=== PATIENT | male | born 1965 | race Hispanic/Latino ===

== ENCOUNTER 2021-06-28 09:50 | Emergency (ER) | payer SELFPAY ==
--- NOTE | 2021-06-28 12:03 | ER ---
Nurse's Notes [facility] Name: Sudhakar Rodriguez Age: 56 yrs Sex: Male : 1965 Arrival Date: 06/28/2021 Time: 09:53 Bed DIS2 Private MD: Diagnosis: Anxiety disorder, unspecified Presentation: 06/28 09:54 Chief complaint: Patient states: pt states he has parasites in his body and got iw medicine from [place] for it but he's out, has had parasites for a year and half , pt stated that he was throwing them up and then they came out of his forehead and he thinks he has nests all over his body, found meth in the house but pt denied that it was his. Coronavirus screen: At this time, the client does not indicate any symptoms associated with coronavirus-19. Ebola Screen: Patient negative for fever greater than or equal to 101.5 degrees Fahrenheit, and additional compatible Ebola Virus Disease symptoms Patient denies exposure to infectious person. Patient denies travel to an Ebola-affected area in the 21 days before illness onset. No symptoms or risks identified at this time. Initial Sepsis Screen: Does the patient meet any 2 criteria? No. Patient's initial sepsis screen is negative. Does the patient have a suspected source of infection? No. Patient's initial sepsis screen is negative. Risk Assessment: Do you want to hurt yourself or someone else? Patient reports no desire to harm self or others. Onset of symptoms was June 28, 2021. 09:54 Method Of Arrival: EMS: [facility] iw 09:54 Acuity: YANET 4 iw Triage Assessment: 10:56 General: Appears in no apparent distress. comfortable, Behavior is cooperative, vg1 anxious. Pain: Denies pain. Historical: - Allergies: 10:56 No Known Allergies; vg1 - Home Meds: 10:56 None [Active]; vg1 - PMHx: 10:56 None; vg1 - PSHx: 10:56 None; vg1 - Immunization history:: Client reports having NOT received the Covid vaccine. - Social history:: Smoking status: Patient reports the use of cigarette tobacco products, smokes one pack cigarettes per day. - Family history:: not pertinent. Screenin:03 Abuse screen: Denies threats or abuse. Denies injuries from another. Nutritional iw screening: No deficits noted. Tuberculosis screening: No symptoms or risk factors identified. Fall Risk None identified. Assessment: 11:30 General: Appears in no apparent distress. comfortable, Behavior is calm, cooperative. iw Pain: Denies pain. Neuro: Level of Consciousness is awake, alert, obeys commands, Oriented to person, place, time, situation, Moves all extremities. Full function. Cardiovascular: Patient's skin is warm and dry. Respiratory: Respiratory effort is even, unlabored, Respiratory pattern is regular, symmetrical. Derm: Skin is intact, is healthy with good turgor. Musculoskeletal: Range of motion: intact in all extremities. Vital Signs: 10:56 BP 124 / 76; Pulse 97; Resp 16; Temp 97.7; Pulse Ox 96% ; Weight 68.04 kg; Height 5 ft. vg1 6 in. (167.64 cm); Pain 0/10; 10:56 Body Mass Index 24.21 (68.04 kg, 167.64 cm) vg1 ED Course: 09:53 Patient arrived in ED. iw 09:56 Triage completed. iw 10:56 Arm band placed on. vg1 11:28 Bogdan Mendoza MD is Attending Physician. [facility] 11:30 Patient has correct armband on for positive identification. iw 11:48 Payton Calloway, RN is Primary Nurse. iw 12:02 Eleuterio Chen MD is Referral Physician. [facility] 12:03 No provider procedures requiring assistance completed. Patient did not have IV access iw during this emergency room visit. Administered Medications: No medications were administered Outcome: 12:03 Discharge ordered by . [facility] 12:03 Discharged to home ambulatory. iw 12:03 Condition: good 12:03 Discharge instructions given to pt left before d/c instructions given 12:04 Patient left the ED. iw Signatures: Bogdan Mendoza MD MD cha Williams, Irene, RN RN iw Mony Israel RN RN vg1
--- NOTE | 2021-06-28 12:03 | EDPHYS ---
Physician Documentation [facility] Name: Sudhakar Rodriguez Age: 56 yrs Sex: Male : 1965 Arrival Date: 06/28/2021 Time: 09:53 Bed DIS2 Private MD: ED Physician Bogdan Mendoza HPI: 06/28 11:54 This 56 yrs old Male presents to ER via EMS with complaints of Skin Problem. ti 11:54 The patient presents with cellulitis of the back, right arm, left arm, right leg and ti left leg. Description: resolved now, pt believes it was parasites, denies drug use. Onset: The symptoms/episode began/occurred 1 year(s) ago. Possible cause(s): unknown parasites. Associated signs and symptoms: The patient has no apparent associated signs or symptoms. Modifying factors: the symptoms are alleviated by nothing, the symptoms are aggravated by nothing. Severity of symptoms: At their worst the symptoms were moderate, in the emergency department the symptoms are unchanged. The patient has not experienced similar symptoms in the past. Historical: - Allergies: 10:56 No Known Allergies; vg1 - Home Meds: 10:56 None [Active]; vg1 - PMHx: 10:56 None; vg1 - PSHx: 10:56 None; vg1 - Immunization history:: Client reports having NOT received the Covid vaccine. - Social history:: Smoking status: Patient reports the use of cigarette tobacco products, smokes one pack cigarettes per day. - Family history:: not pertinent. ROS: 11:54 Constitutional: Negative for fever, chills, and weight loss, Eyes: Negative for injury, ti pain, redness, and discharge, ENT: Negative for injury, pain, and discharge, Neck: Negative for injury, pain, and swelling, Cardiovascular: Negative for chest pain, palpitations, and edema, Respiratory: Negative for shortness of breath, cough, wheezing, and pleuritic chest pain, Abdomen/GI: Negative for abdominal pain, nausea, vomiting, diarrhea, and constipation, Back: Negative for injury and pain, : Negative for injury, bleeding, discharge, and swelling, MS/Extremity: Negative for injury and deformity, Neuro: Negative for headache, weakness, numbness, tingling, and seizure, Psych: Negative for depression, anxiety, suicide ideation, homicidal ideation, and hallucinations, Allergy/Immunology: Negative for hives, rash, and allergies, Endocrine: Negative for neck swelling, polydipsia, polyuria, polyphagia, and marked weight changes, Hematologic/Lymphatic: Negative for swollen nodes, abnormal bleeding, and unusual bruising. 11:54 Skin: Positive for bites , healed and no current lesions. Exam: 11:54 Constitutional: This is a well developed, well nourished patient who is awake, alert, ti and in no acute distress. Head/Face: Normocephalic, atraumatic. Eyes: Pupils equal round and reactive to light, extra-ocular motions intact. Lids and lashes normal. Conjunctiva and sclera are non-icteric and not injected. Cornea within normal limits. Periorbital areas with no swelling, redness, or edema. ENT: Nares patent. No nasal discharge, no septal abnormalities noted. Tympanic membranes are normal and external auditory canals are clear. Oropharynx with no redness, swelling, or masses, exudates, or evidence of obstruction, uvula midline. Mucous membranes moist. Neck: Trachea midline, no thyromegaly or masses palpated, and no cervical lymphadenopathy. Supple, full range of motion without nuchal rigidity, or vertebral point tenderness. No Meningismus. Chest/axilla: Normal chest wall appearance and motion. Nontender with no deformity. No lesions are appreciated. Cardiovascular: Regular rate and rhythm with a normal S1 and S2. No gallops, murmurs, or rubs. Normal PMI, no JVD. No pulse deficits. Respiratory: Lungs have equal breath sounds bilaterally, clear to auscultation and percussion. No rales, rhonchi or wheezes noted. No increased work of breathing, no retractions or nasal flaring. Abdomen/GI: Soft, non-tender, with normal bowel sounds. No distension or tympany. No guarding or rebound. No evidence of tenderness throughout. Back: No spinal tenderness. No costovertebral tenderness. Full range of motion. Skin: Warm, dry with normal turgor. Normal color with no rashes, no lesions, and no evidence of cellulitis. MS/ Extremity: Pulses equal, no cyanosis. Neurovascular intact. Full, normal range of motion. Neuro: Awake and alert, GCS 15, oriented to person, place, time, and situation. Cranial nerves II-XII grossly intact. Motor strength 5/5 in all extremities. Sensory grossly intact. Cerebellar exam normal. Normal gait. 11:54 Psych: Behavior/mood is anxious, Affect is animated, Oriented to person, place, time, Patient has no thoughts/intents to harm self or others. Judgement / Insight is normal. Memory is normal. Delusions/hallucinations are present and described as thinks he has parasites all over his body, EMS said Meth and other drug paraphernalia at home. Vital Signs: 10:56 BP 124 / 76; Pulse 97; Resp 16; Temp 97.7; Pulse Ox 96% ; Weight 68.04 kg; Height 5 ft. vg1 6 in. (167.64 cm); Pain 0/10; 10:56 Body Mass Index 24.21 (68.04 kg, 167.64 cm) vg1 MDM: 11:28 Patient medically screened. ti 12:00 Differential diagnosis: abscess, allergic reaction, cellulitis, insect bite. Data ti reviewed: vital signs, nurses notes. Data interpreted: bus monitor: not applicable for this patient encounter. rate is 97 beats/min, rhythm is regular, Pulse oximetry: on room air is 96 %. Counseling: I had a detailed discussion with the patient and/or guardian regarding: the historical points, exam findings, and any diagnostic results supporting the discharge/admit diagnosis, the need for outpatient follow up, for definitive care, a family practitioner, a psychiatrist. 06/28 11:40 Order name: Blood Glucose Level [facility] [place] 06/28 11:40 Order name: Urine Dipstick-Ancillary (obtain specimen) ti Administered Medications: No medications were administered Disposition Summary: 06/28/21 12:03 Discharge Ordered Location: Home [facility] [place] Problem: new ti Symptoms: have improved ti Condition: Stable ti Diagnosis - Anxiety disorder, unspecified ti Followup: ti - With: Private Physician - When: 2 - 3 days - Reason: Recheck today's complaints, Continuance of care, Re-evaluation by your physician Followup: ti - With: Eleuterio Chen MD - When: 2 - 3 days - Reason: Recheck today's complaints, Re-evaluation by your physician Discharge Instructions: - Discharge Summary Sheet ti - Managing Anxiety, Adult ti Forms: - Medication Reconciliation Form ti - Thank You Letter ti - Antibiotic Education ti - Prescription Opioid Use ti Prescriptions: - Benadryl 25 mg Oral Capsule - take 1 capsule by ORAL route every 6 hours As needed; 30 tablet; Refills: 0, ti Product Selection Permitted Signatures: Dispatcher [employer] Bogdan Waddell MD MD cha Garcia, Victoria RN RN vg1
[2021-06-28 12:09] VITALS: BP 124/76; TEMP 97.7; O2SAT 96
== END 2021-06-28 12:04 | disposition home or self-care (01) ==
LOC: ER 09:50
DX: F41.9 Anxiety disorder, unspecified (principal); F17.210 Nicotine dependence, cigarettes, uncomplicated
CPT/HCPCS: 99283